=== PATIENT | female | born 1975 | race Caucasian/White ===

== ENCOUNTER 2022-01-13 13:02 | Emergency (ER) | payer BC, SELFPAY ==
[2022-01-13 14:37] VITALS: BP 164/92; PULSE 85; RESP 18; TEMP 37.1; O2SAT 99; BMI 39.5
--- NOTE | 2022-01-13 14:48 | HMH.EDUTC ---
[facility] [place] Clinical Impression: UTI (urinary tract infection) Qualifiers: Urinary tract infection type: site unspecified Hematuria presence: with hematuria Qualified Code(s): N39.0 - Urinary tract infection, site not specified; R31.9 - Hematuria, unspecified Disposition: Home, Self-Care Condition on Discharge: Good Instructions: Low Back Pain, DI for Low Back Pain Additional Instructions: *Etodolac every 8 hours with meal as needed for pain/inflammation *Remember you had a Toradol shot in the clinic today, which is similar to Etodolac *Not additional anti-inflammatory like Ibuprofen motrin, aleve, advil with the above amount of Etodolac. You can still take Tylenol every 4 hours as needed if you need something else for pain *Ice 20 minutes every 2 hours for the first 48 hours after the initial injury followed by moist heat every 20 minutes 3-4 times a day to affected area *Muscle relaxer every 8 hours as needed for muscle spasms but remember, it WILL cause drowsiness You cannot take it and drive, operate machinery or care for small children. *Keep this area active, no movement leads to more stiffness, However take it easy and avoid heavy lifting pushing or pulling *Follow up with you family doctor if no improvement for further treatment *Increase fluids. Water not Soda or Tea *Start antibiotic immediately and be sure to take as ordered for the FULL length of time although you should start to see improvement over the next 48 hours *Be SURE to follow up anytime for new or worsening symptoms with your family doctor. AND in 48 hours for urine culture results with your family doctor, if you do not have a doctor then you may call back to the [facility] for urine culture results and further treatment. We do recommend that you choose and establish care with a Primary Care Physician. AND follow up with them in 10-14 days to repeat UA to ensure infection is resolved and blood no longer present *Be sure to let your PCP know that we sent urine cultures from the [facility] so they can follow up to ensure that you area the on the correct antibiotic Call your doctor office and make appointment for 48 hours (2 days from today) to follow up and get the results of your urine culture and further treatment Prescriptions: Etodolac 200 mg PO Q8HP PRN #20 cap PRN Reason: Moderate Pain Transmission Status: Pending to [facility] Cyclobenzaprine HCl [Flexeril 10mg tablet] 10 mg PO Q8HP PRN #15 tab PRN Reason: Muscle Spasm Transmission Status: Pending to [facility] Nitrofurantoin Monohyd/M-Cryst [Macrobid 100 mg Capsule] 100 mg PO BID 7 Days #14 cap Transmission Status: Pending to [facility] Referrals: Leonard Caceres MD [Primary Care Provider] - As needed Time of Disposition: 15:41 Medical Decision Making - Conrad Inquiry Pt receiving controlled substance: No Conrad was queried for this patient: No Vital Signs: 01/13/22 14:37 Temperature 98.8 F Temperature Source Oral Pulse Rate [Left Radial] 85 Respiratory Rate 18 Blood Pressure [Right Arm] 164/92 H Blood Pressure Mean [Right Arm] 116 02 Sat by Pulse Oximetry 99 - Lab Data Lab results reviewed: Yes: I reviewed the patient's lab results. Lab Results 01/13/22 15:00: Urine Color Red, Urine Appearance Cloudy, Urine pH 5.0, Ur Specific [place]ham 1.025, Urine Protein 2+, Urine Glucose (UA) Negative, Urine Ketones Trace, Urine Blood 3+, Urine Nitrate Positive, Urine Bilirubin Negative, Urine Urobilinogen 1.0, Ur Leukocyte Esterase Trace Orders (Tests/Meds): ED MEDICATIONS Discontinued Medications Generic Name Dose Route Start Last Admin Trade Name Freq PRN Reason Stop Dose Admin Ketorolac Tromethamine 60 mg 01/13/22 14:55 01/13/22 15:22 Ketorolac 60mg/2ml Vial IM 01/13/22 14:56 60 mg ONCE ONE Administration Methylprednisolone Sodium Succinate 125 mg 01/13/22 14:55 01/13/22 15:22 Methylprednisolone Sod Succ 125mg Vial IM 01/13/22 14:56 125
[2022-01-13 15:20] LABS: Microscopic, Urine URINE MICROSCOPIC (MICROSCOPIC)
[2022-01-13 15:33] LABS: Appearance,Urine CLOUDY (Clear); Bilirubin,Urine Negative (Negative); Blood, Urine 3+ (Negative); Color,Urine RED (Yellow); Glucose,Urine (UA) Negative (Negative); Ketones,Urine TRACE (Negative); Leukocyte Esterase,Urine TRACE (Negative); Nitrate,Urine POSITIVE (Negative); Protein,Urine 2+ (Negative); Specific Gravity, Urine 1.025 (1.005-1.030)
[2022-01-13 15:48] LABS: Bacteria,Urine Trace /lpf; RBC,Urine TNTC #/hpf (0-3)
[2022-01-13 15:52] VITALS: BP 164/92; PULSE 85; RESP 18; TEMP 37.1
== END 2022-01-13 15:53 | disposition home or self-care (01) ==
PROVIDERS: Emergency Provider Nurse Practitioner; PCP Family Medicine
DX: N30.01 Acute cystitis with hematuria (principal)
CPT/HCPCS: 81001; 87086; 96372; 99212; G0463

== ENCOUNTER 2022-12-12 16:53 | Emergency (ER) | payer BC, SELFPAY ==
[2022-12-12 17:11] VITALS: BP 135/98; PULSE 89; RESP 18; TEMP 37.2; O2SAT 98; BMI 40.1
[2022-12-12 17:28] LABS: Apearance,Urine Clear (Clear); Bilirubin,Urine Negative (Negative); Blood, Urine 1+ (Negative); Color,Urine Dark Yellow (Yellow); Glucose,Urine (UA) Negative (Negative); Ketones,Urine Negative (Negative); PH,Urine 5.5 (5.0-8.5); Protein,Urine Negative (Negative); Specific Gravity, Urine 1.025 (1.005-1.030); UTC Leukocyte Esterase,Urine Negative (Negative); UTC Nitrate,Urine Negative (Negative); Urobilinogen,Urine 0.2 EU/dl (0.2)
--- NOTE | 2022-12-12 17:30 | XR_ITS ---
PROCEDURE INFORMATION: Exam: XR Lumbosacral Spine Exam date and time: 12/12/2022 5:42 PM Age: 47 years old Clinical indication: Low back pain TECHNIQUE: Imaging protocol: Radiologic exam of the lumbosacral spine. Views: 2 or 3 views. COMPARISON: No relevant prior studies available. FINDINGS: Bones/joints: Zvon-as-peozrzzz degenerative disc disease at L4-L5 with disc space narrowing and spurring and grade 1 spondylolisthesis. Moderate degenerative disc disease at L5-S1 with disc space narrowing and spurring. Mild degenerative spurring at the T12-L1 through the L2-L3 levels. Alignment is otherwise preserved. No fracture. Soft tissues: Unremarkable. IMPRESSION: Degenerative changes most pronounced at L4-L5 and L5-S1. No acute process.
--- NOTE | 2022-12-12 18:39 | EXP.UTC ---
Discharge Plan Disposition Patient Disposition: Home, Self-Care Condition: Good Prescriptions Prescriptions: New etodolac 200 mg capsule 200 mg PO Q8H PRN (Reason: pain) Qty: 20 0RF cyclobenzaprine 10 mg tablet 10 mg PO TID PRN (Reason: muscle spasm) Qty: 15 0RF No Action cyclobenzaprine 10 MG tablet 10 mg PO Q8HP PRN (Reason: Muscle Spasm) Qty: 15 0RF etodolac 200 MG capsule 200 mg PO Q8HP PRN (Reason: Moderate Pain) Qty: 20 0RF nitrofurantoin monohyd/m-cryst 100 MG capsule 100 mg PO BID 7 Days Qty: 14 0RF Referrals Follow up/Referrals: Jami Richard PA [Primary Care Provider] - See instructions Activity Restrictions/Add. Instructions Additional Instructions/Restrictions: *Etodolac yordan 8 hours with meal as needed for pain/inflammation *Not additional anti-inflammatory like motrin, aleve, advil with the above amount of ibuprofen. You can still take Tylenol every 4 hours as needed if you need something else for pain *Ice 20 minutes every 2 hours for the first 48 hours after the initial injury followed by moist heat every 20 minutes 3-4 times a day to affected area *Muscle relaxer every 8 hours as needed for muscle spasms but remember, it WILL cause drowsiness You cannot take it and drive, operate machinery or care for small children. *Keep this area active, no movement leads to more stiffness, However take it easy and avoid heavy lifting pushing or pulling *Follow up with you family doctor if no improvement for further treatment Clinical Impressions Clinical Impression: Low back pain Instructions Patient Instructions: DI for Low Back Pain, Low Back Pain, Cyclobenzaprine, Etodolac Discharge ED Provider: Jenni Power [facility] General Stated complaint: Back pain Mode of Arrival: Ambulatory Source of Information: Patient Limitations: No Limitations Time Seen by Provider: 12/12/22 17:15 Description of Symptoms (Recalled from Triage Doc. by RN): pt states she is having lower L back pain x2d. pt has struggled with sciatica over the past year but states this time it feels different. 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, squatting and pulling States that for the last couple of days she has been having pain in her left lower back area that at times feels like it shafer States that she has had sciatica pain in the past but this feels different States that she is not sure if she may have pulled something or not but does not recall hurting her back and denies urinary problems/pain/burning Related Data Previous Rx's Medication Instructions Recorded cyclobenzaprine 10 mg tablet 10 mg PO Q8HP PRN Muscle Spasm #15 01/13/22 tabs etodolac 200 mg capsule 200 mg PO Q8HP PRN Moderate Pain 01/13/22 #20 caps nitrofurantoin 100 mg PO BID 7 days #14 caps 01/13/22 monohydrate/macrocrystals 100 mg capsule cyclobenzaprine 10 mg tablet 10 mg PO TID PRN muscle spasm #15 12/12/22 tabs etodolac 200 mg capsule 200 mg PO Q8H PRN pain #20 caps 12/12/22 Allergies Allergy/AdvReac Type Severity Reaction Status Date / Time No Known Allergies Allergy Verified 01/13/22 14:40 Worker's Comp Is this a Worker's Comp case?: No PFSH [facility] Disclaimer: The information contained in this section may have been updated after the patient was seen, as this information can be updated by other users. Social History Smoking Status: Never smoker alcohol intake: never current occupational status: employed Travel in the last 8 weeks: None ROS Obtained: Yes All systems reviewed & no additional complaints except as documented and Yes Systems reviewed as appropriate & no additional complaints e
[2022-12-12 18:56] VITALS: BP 135/98; PULSE 89; RESP 18; TEMP 37.2
== END 2022-12-12 19:46 | disposition home or self-care (01) ==
PROVIDERS: Emergency Provider Nurse Practitioner; PCP Physician Assistant
DX: M54.50 Low back pain, unspecified (principal)
CPT/HCPCS: 72100; 81003; 99212; 99214; G0463

== ENCOUNTER 2023-10-05 15:43 | Emergency (ER) | payer BC, SELFPAY ==
[2023-10-05 15:50] VITALS: BP 165/97; PULSE 101; RESP 18; TEMP 36.5; O2SAT 98; BMI 39.5
--- NOTE | 2023-10-05 15:52 | EXP.UTC ---
Discharge Plan Disposition Patient Disposition: Home, Self-Care Condition: Good Prescriptions Prescriptions: New bisacodyl 10 mg suppository 10 mg PA DAILY PRN (Reason: constipation) Qty: 12 0RF ondansetron 4 mg Tablet,Disintegrating 4 mg PO Q8H PRN (Reason: Nausea) Qty: 12 0RF Referrals Follow up/Referrals: Leonard Caceres MD [Primary Care Provider] - See instructions Sabrina Coleman DPM [Staff Physician] - See instructions Activity Restrictions/Add. Instructions Additional Instructions/Restrictions: Drink plenty of fluids. Take tylenol or ibuprofen for pain or fever. Take the medications as directed. Follow up with your regular doctor. GO TO THE ER FOR ANY WORSENING SYMPTOMS Throw your tooth brush away and get a new one. Quarantine until you know the results of your covid-19 test. Notify your school or workplace of your results and follow their instructions regarding return to work/school. Clinical Impressions Clinical Impression: Constipation, Abdominal pain Instructions Patient Instructions: Constipation, DI for Constipation Discharge ED Provider: Ozzie Flores [facility] General Stated complaint: abdomen is hurting Time Seen by Provider: 10/05/23 15:51 History of Present Illness Provider Complaint: She states that for the past 1 day she has had abdominal bloating, nausea, and a fullness feeling. She also has had some left upper quadrant abdominal pain. She states that she is constipated and it has been at least 1 week since she has had a bowel movement. She has been taking miralax and milk of magnesia at home for her constipation. She denies any fever/chills/malaise. Related Data Previous Rx's Medication Instructions Recorded bisacodyl 10 mg rectal suppository 10 mg PA DAILY PRN constipation 10/05/23 #12 ea ondansetron 4 mg disintegrating 4 mg PO Q8H PRN Nausea #12 tabs 10/05/23 tablet Allergies Allergy/AdvReac Type Severity Reaction Status Date / Time No Known Allergies Allergy Verified 10/05/23 16:05 [facility] Disclaimer: The information contained in this section may have been updated after the patient was seen, as this information can be updated by other users. Social History (Updated 12/12/22 @ 18:50 by Jenni Power APRN) Smoking Status: Never smoker alcohol intake: never current occupational status: employed Travel in the last 8 weeks: None ROS Obtained: Yes All systems reviewed & no additional complaints except as documented Constitutional Constitutional: Denies chills, Denies fever(s) and Reports poor appetite ENT Ears, Nose, Mouth, and Throat: Denies dizziness and Denies sore throat Cardiovascular Cardiovascular: Denies dyspnea Respiratory Respiratory: Denies chest congestion, Denies cough and Denies dyspnea Gastrointestinal Gastrointestingal: Reports as per HPI, abdominal pain and nausea; Denies diarrhea or vomiting Genitourinary Female Genitourinary: Denies difficulty voiding, Denies dysuria, Denies hematuria, Denies urinary frequency, Denies urinary incontinence, Denies urinary hesitancy and Denies urinary urgency Musculoskeletal Musculoskeletal: Denies arthralgias Integumentary/Breasts Skin/Breast: Denies rash Neurologic Neurologic: Denies dizziness Physical Exam General General appearance: alert and in no apparent distress Head Head exam: atraumatic and normocephalic Eye Eye exam: Present normal appearance, PERRL and EOMI ENT ENT exam: Present normal exam, normal oropharynx, mucous membranes moist, TM's normal bilaterally and normal external ear exam Neck Neck exam: Present normal inspection, full ROM and trachea midline; Absent tenderness, meningismus or lymphadenopathy Chest Chest inspection: Present normal inspection and symmetric chest wall rise; Absent tenderness, rash or abscess Respiratory Respiratory exam: Present normal lung sounds bilaterally; Absent respiratory distress, wheezes or stridor Cardiovascular Cardiovascular exam: Present regular rate and normal rhythm; Absent irregular rhythm, systolic murmur, diastolic murmur or JVD Abdominal Exam Abdominal exam: Present soft and diminished bowel sounds; Absent distention, tenderness, guarding, rebound, rigidity, psoas sign, obturator sign, heel tap sign, Rbuio's sign, Rovsing's sign or tenderness at McBurney's Point Extremities Exam Extremities exam: Present normal inspection and full ROM; Absent tenderness Back Exam Back exam: Present normal inspection and full ROM; Absent tenderness, CVA tenderness (R) or CVA tenderness (L) Neurological Exam Neurological exam: Present alert, oriented X3 and CN II-XII intact Psychiatric Psychiatric exam: Present normal affect and normal mood Skin Skin exam: Present warm, dry, intact and normal color Lymphatic Lymphatic Findings: no adenopathy Medical Decision Making Medical Records Medical records reviewed: No I reviewed the patient's medical records. Conrad Inquiry Pt receiving controlled substance: No Lab Data Lab results reviewed: Yes I reviewed the patient's lab results. 10/05/23 16:15 10/05/23 16:15
[2023-10-05 15:53] VITALS: BMI 39.5
--- NOTE | 2023-10-05 16:01 | XR_ITS ---
PROCEDURE INFORMATION: Exam: XR Abdomen Exam date and time: 10/05/2023 4:01 PM Age: 48 years old Clinical indication: Abdominal tenderness and bloating and constipation and vomiting and other: Pain; Prior surgery; Surgery date: 6+ months; Surgery type: 3 c sections TECHNIQUE: Imaging protocol: Radiologic exam of the abdomen. Views: Frontal supine view of the abdomen. 1 View. COMPARISON: CR XR LUMBAR SPINE 2-3V 12/12/2022 5:42 PM FINDINGS: Peritoneal cavity: Evidence of tubal ligation. No suspicious calcifications detected. Lungs: Visualized lung bases are clear. Gastrointestinal tract: Normal. No bowel dilation. No significant stool burden. Bones/joints: Unremarkable. IMPRESSION: Unremarkable bowel gas pattern
[2023-10-05 16:10] LABS: Apearance,Urine Slightly Cloudy (Clear); Bilirubin,Urine Negative (Negative); Blood, Urine Trace (Negative); Color,Urine Dark Yellow (Yellow); Glucose,Urine (UA) Negative (Negative); Ketones,Urine Negative (Negative); Protein,Urine Trace (Negative); UTC Leukocyte Esterase,Urine Negative (Negative); UTC Nitrate,Urine Negative (Negative); Urobilinogen,Urine 0.2 EU/dl (0.2)
[2023-10-05 16:38] LABS: Basophils % 0.3 % (0.1-2.0); Eosinophils # 0.1 K/mm3 (0.0-0.4); Eosinophils % 1.1 % (0.1-12.0); Hematocrit 44.7 % (37.0-47.0); Hemoglobin 14.6 g/dL (12.2-16.2); Lymphocytes # 2.4 K/mm3 (0.7-4.5); Mean Corpuscular HGB Conc 32.7 g/dL (31.8-35.4); Mean Corpuscular Hemoglobin 30.3 pg (27.0-31.2); Mean Corpuscular Volume 92.9 fl (81-99); Mean Platelet Volume 8.9 fl (7.4-10.4); Monocytes # 0.2 K/mm3 (0.1-1.0); Neutrophils # 5.3 K/mm3 (1.8-7.8); Neutrophils % 65.6 % (37.0-80.0); Platelet Count 336 K/mm3 (142-424); Red Blood Count 4.81 M/mm3 (4.20-5.40); Red Cell Distribution Width 13.1 % (11.5-17.5)
[2023-10-05 16:46] LABS: Chloride 104 mmol/L (98-107); Sodium 137 mmol/L (136-145)
[2023-10-05 16:49] LABS: Alanine Aminotransferase 29 U/L (12-78); Alkaline Phosphatase 85 U/L (38-126); Amylase 68 U/L (30-110); Aspartate Amino Transferase 33 U/L (14-36); Bilirubin,Total 0.5 mg/dl (0.2-1.3); Blood Urea Nitrogen 13 mg/dl (7-17); Calcium 9.4 mg/dl (8.4-10.2); Carbon Dioxide 33 mmol/L (22.0-30.0); Creatinine Clearance Estimated 135 mL/min (50-200); Estimated Glomerular Filt Rate 60 ml/min (>60); GFR (African American) 72 ML/MIN (>60); Glucose 97 mg/dl (74-100)
[2023-10-05 16:50] LABS: Albumin Level 4.4 g/dl (3.5-5.0); Albumin/Globulin Ratio 1.2 (1.1-1.8); Globulin 3.6 g/dL (1.3-3.2); Lipase 90 U/L (23-300)
[2023-10-05 17:10] VITALS: BP 165/97; PULSE 101; RESP 18; TEMP 36.5; O2SAT 98
== END 2023-10-05 17:10 | disposition home or self-care (01) ==
PROVIDERS: Emergency Provider Nurse Practitioner Family; PCP Family Medicine
DX: R10.12 Left upper quadrant pain (principal); K59.00 Constipation, unspecified; B95.1 Streptococcus, group B, as the cause of diseases classified elsewhere; B96.89 Other specified bacterial agents as the cause of diseases classified elsewhere; R11.0 Nausea; R14.0 Abdominal distension (gaseous)
CPT/HCPCS: 74018; 80053; 81003; 82150; 83690; 85025; 87086; 99212; 99214; G0463

== ENCOUNTER 2025-04-07 08:12 | Outpatient (CLI) | payer BC, SELFPAY ==
--- NOTE | 2025-04-07 08:30 | US_ITS ---
PROCEDURE: US TRANSVAGINAL CLINICAL INDICATION: abdominal/pelvic pain COMPARISON: No exams were available for comparison FINDINGS: Transvaginal and transabdominal sonographic images of the pelvis were obtained. UTERUS: 9.2cm x 5.3cmx 5.1cm slightly retroflexed with a combined endometrial thickness of 10.2mm. A scar is seen. LEFT OVARY: 1.9 cmx1.7 cmx2.5cm with a volume of 4.3ml. RIGHT OVARY: Not visualized The left ovary is seen transabdominally and appears normal. Doppler flow to the left ovary is seen. There is no fluid in the cul-de-sac. There is however fluid around the uterus posteriorly. IMPRESSION: 1. Retroflexed uterus slightly enlarged in size and normal in shape. The endometrium is normal measuring 10.2 mm. 2. The right ovary was not seen transvaginally or transabdominally. The left ovary is seen only transabdominally and appears normal. 3. There is no fluid in the cul-de-sac but a trace amount of fluid that surrounds the posterior uterus. Dictated by: Mike Thakkar MD 04/07/2025 17:30 Mike Thakkar MD in OV 04/07/2025 17:30
== END 2025-04-07 23:59 | disposition home or self-care (01) ==
PROVIDERS: PCP Family Medicine; Visit Provider Obstetrics & Gynecology
DX: N85.4 Malposition of uterus (principal); N85.2 Hypertrophy of uterus; R93.89 Abnormal findings on diagnostic imaging of other specified body structures; R10.2 Pelvic and perineal pain
CPT/HCPCS: 76830

== ENCOUNTER 2025-05-24 15:57 | Outpatient (CLI) | payer BC, SELFPAY ==
--- OUTSIDE RECORDS SUMMARY | 2025-05-24 16:00 | XMS_ITS | Clinical Summary ---
Author Organization Healthcare Address [address] [place] [address] Care Team Providers Care Racing Manager Name Role Phone Unavailable Primary Care Provider Unavailabl e Social History Tobacco Use Types Packs/Day Years Used Date Smoking Tobacco: Never Assessed Comments Unknown Sex and Gender Information Value Date Recorded Sex Assigned at Not on file Legal Sex Female 11:06 AM EDT Gender Identity Not on file Sexual Orientation Not on file Plan of Treatment Health Maintenance Due Date Last Done Comments [facility]-Depression Screening 1977 [facility]-/Child/Adol SDOH Screenings 1977 [facility]- SDOH Screenings 1995 [facility]-Adult SDOH Screenings 1995 [facility]-DTaP,Tdap,and Td Vaccine s (1 - Tdap) 1996 [facility]-Hepatitis B Vaccines (1 of 3 - 19+ 3-dose series) 1996 [facility]-Pap Smear 1998 [facility]-Cervical Cancer Screening 2007 [facility]-HPV/Cotest 2007 CT Colonography 2022 Colonoscopy 2022 FIT-DNA 2022 FIT 2022 FOBT 2022 Sigmoidoscopy 2022 [facility]-Colorectal Cancer Screening 2022 [id number] Vaccine (1 - 20 24-25 season) 2025 [facility]-Influenza Vaccine (#1) 2025 [facility]-Zoster Vaccines (1 of 2) 2027 HPV Vaccines Aged Out No longer eligi ble based on patient's age to complete this topic [facility]-HIB Vaccines Aged Out No longer e ligible based on patient's age to complete this topic [facility]-Hepatitis A Vaccines Aged Out No longer eligible based on patient's age to complete this topic [facility]-IPV Vaccines Aged Out No longer e ligible based on patient's age to complete this topic [facility]-Pneumococcal Vaccine: Pediatrics (0 to 5 Years) and At-Risk Patients (6 to 49 Years) Aged Out No long er eligible based on patient's age to complete this topic [facility]-Rotavirus Vaccines Aged Out No lo nger eligible based on patient's age to complete this topic
[2025-05-25 12:15] LABS: FSH 4.3 mIU/mL (.); LH 5.6 mIU/mL (.); Testosterone,Total 47 ng/dL (4-50)
== END 2025-05-24 23:59 | disposition home or self-care (01) ==
LOC: LAB 15:58
PROVIDERS: PCP Physician Assistant; Visit Provider Obstetrics & Gynecology
DX: N95.1 Menopausal and female climacteric states (principal)
CPT/HCPCS: 36415; 82670; 83001; 83002; 84144; 84403

== ENCOUNTER 2025-06-06 15:18 | Outpatient (CLI) | payer BC, SELFPAY ==
--- NOTE | 2025-06-06 15:30 | MM_ITS ---
PROCEDURE INFORMATION: Exam: MG Bilateral Screening 3D Mammography Exam date and time: 06/06/2025 3:27 PM Age: 50 years old Clinical indication: Screening exam TECHNIQUE: Imaging protocol: Bilateral Screening tomosynthesis and 2D mammography including computer-aided detection (CAD) when performed. COMPARISON: No relevant prior studies available. FINDINGS: MAMMOGRAPHY: Breast composition: There are scattered areas of fibroglandular density. Mass: No suspicious masses. Architectural distortion: None. Calcifications: No suspicious calcifications. Asymmetric density: None. Skin thickening: None. Axillary adenopathy: None. IMPRESSION: No mammographic evidence of malignancy. Annual screening is recommended unless otherwise clinically indicated. ASSESSMENT: BI-RADS Category 1: Negative.
--- OUTSIDE RECORDS SUMMARY | 2025-06-06 16:01 | XMS_ITS | Patient Health Record ---
[facility] [address] [place] [id number] Care Team Providers Care Inspector Publications Name Role Phone Leonard Caceres Primary Care Provider [phone] Allergies No Known Allergies Reason For Referral No Information Medications Medication SIG (Take, Route, Frequency, Duration) Notes Start Date End Date Status Nitrofurantoin Macrocrystal 100 MG 1 cap(s) orally 2 times a day; Duration: 7 day(s) 06/17/2022 Not-Taking Hyoscyamine Sulfate SL 0.125 MG 1 tablet under the tongue and allow to dissolve as needed Sublingual Three times a day, prn 11/14/2023 Active Immunizations Vaccine Route Administration Date Status Comme nts Tetanus Tdap-Adacel (over 7yrs) IM Intramuscular 09/03/2010 Administered Problems Problem Type SNOMED Code ICD Code Onset Dates Problem Status W/U Status Risk Notes Problem Essential hypertension (57381371) HTN [Hypertension] (401.9) Active confirmed Problem Hypertension (87160870) HTN (hypertension) (I10) Active confirmed Problem Sciatica (52050012) Acute bilateral low back pain with right-sided sciatica (M54.41) Active confirmed Plan Of Treatment No Information Insurance Providers Payer Name Payer Address Payer Phone Subscriber Number Group Number Insured Name Patient Relationship to Insured Coverage Start Date Coverage End Date [employer] [address] [place] [address] [id number] Mine Olivarez Self - patient is the insured Medical (General) History Surgical History Surgery Date(Month/Year) C section 1999/2003 C section 2011
--- OUTSIDE RECORDS SUMMARY | 2025-06-06 16:01 | XMS_ITS | Clinical Summary ---
Author Organization Healthcare Address [address] [place] [address] Care Team Providers Care Full Stack Net Developer Name Role Phone Unavailable Primary Care Provider [...] 2022 Sigmoidoscopy 2022 [facility]-Colorectal Cancer Screening 2022 [id number] Vaccine (1 - 20 24-25 season) 2025 [...]
--- OUTSIDE RECORDS SUMMARY | 2025-06-06 16:02 | XMS_ITS | Data Portability ---
Author Organization [facility] [place] [facility] [place] [facility] [place] Address [address] [place] [id number] Care Team Providers Care Fairground Operator Name Role Phone SHAE JACOBS Primary Care Provider [phone] Assessment Encounter Date Assessment Date Assessment LastModified by Organization Details LastModified Time 12/16/2023 12/16/2023 48-year-old female with abdominal bloating despite treatment of constipation with intermittent left lower quadrant pain, decrease in appetite and early satiety: - Will schedule EGD for further evaluation of abdominal pain and bloating - Will schedule screening colonoscopy, patient is screening age and has never undergone screening colonoscopy. - Will order CT abdomen pelvis for further evaluation of abdominal bloating - Will send referral to Gynecology for abdominal bloating. Instructed patient to follow up with them annually F/u 2-4 weeks after EGD/Colon Not available 12/16/2023 10:01:55 Plan of Treatment Reminders Order Date Submit Date Provider Last Modified By Organization Details Last Modified Time Details Appointments None recorded. Lab None recorded. Referral None recorded. Procedures None recorded. Surgeries None recorded. Imaging CT, abdomen + pelvis, w/ contrast 2023 [address] [email or web address] [address] [place] [address] (Centralized Scheduling), [address], [place], [address], 14:23:46 Medication Orders None recorded. Patient TargetsNo targets recorded. Patient InstructionsNo instructions recorded. Reason for Referral None Reported. Medical Equipment None Reported. Allergies No known drug allergies Medications Name Sig Start Date Stop Date Status Note LastModified by Organization Details LastModified Time cyclobenzaprin e 10 mg tablet TAKE 1 TABLET BY MOUTH THREE TIMES DAILY NEEDED FOR MUSCLE SPASM active Not Available Not Available No t Available etodolac 200 mg capsule TAKE 1 CAPSULE BY MOUTH EVERY 8 HOURS NEEDED FOR PAIN active Not Available Not Available No t Available hyoscyamine 0.125 mg sublingual tablet DISSOLVE 1 TABLET IN MOUTH THREE TIMES DAILY NEEDED active Not Available Not Available No t Available ondansetron 4 mg disintegrating tablet DISSOLVE 1 TABLET IN MOUTH EVERY 8 HOURS NEEDED FOR NAUSEA active Not Available Not Available No t Available Gavilyte-C 240 gram-22.72 gram-6.72 gram-5.84 gram oral solution DRINK 2000 ML BY MOUTH TWICE A DAY active Not Available Not Available No t Available Suprep Bowel Prep Kit 17.5 gram-3.13 gram-1.6 gram oral solution Take 2 packages by oral route for 1 day. 2023 active Not Available Not Available Not Avai lable Vitals Date Recorded Body weight Body mass index (BMI) Body height Body temperature Oxygen saturation Oxygen saturation in Arterial blood by Pulse oximetry Heart rate Heart rate Systolic And Diastolic Provider Name and Address Organization Details Last Updated DateTime 4 287486. 26 g 40.3 kg/m2 172.72 cm 97.9 [degF] 97 % 97 % 82 /min 83 /min 155/89 mm[Hg] [facility] [place] [facility] 09:08:59 Social History None recorded. 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 Family History Nothing Reported. Medical History No medical history recorded. Gynecological HistoryNo gynecological history recorded. Obstetrics History GPAL:G 0 P 0 0 0 0 Past Encounters Encounter ID Performer Location Encounter Start Date Encounter Closed Date Diagnosis/Indication Diagnosis SNOMED-CT Code Diagnosis ICD10 Code Diagnosis IMO Codes Diagnosis Note [id number] Genaro Oconnor MD [facility] [address] [address] 12/16/2023 08:53:44 12/16/2023 09:39:44 Abdominal bloating 346018974 R14.0 Early satiety 290941178 R68.81 Decrease in appetite 643 49642 R63.0 Screening for malignant neoplasm of colon 775130282 Z12.11 Left lower quadrant pain 069415890 R10.32 Health Concerns Section Related Observation LastModified by Organization Detai ls LastModified Time None Recorded Concern Status LastModified by Organization Details LastModified Time None Recorded Advance Directives Directive None Recorded Payers Insurance Date Sequence Insurance Name Policy Number Policy Blair Covered Member ID Blair Member ID Guarantor Name 01/09/2024 1 [employer] [id number] Mine Olivarez [id number] Mine Olivarez Notes Date Note Type Note Provider Name and Address Organization Details Recorded Time 12/16/2023 text/html (CURRENT 12/16/23 Vamsi Santoyo): Ms. Olivarez Is a 48-year-old female who was self-referred. She presents to the clinic today complaining of abdominal bloating since September. She previously went to urgent care where abdominal x-ray showed constipation. Since that time she has been using MiraLax and magnesium to regulate her bowel movements. She reports soft bowel movements once daily. She continues to experience constant bloating with intermittent left lower quadrant pain, not affected by food. She does not currently follow with Gynecology. She does report some decreased appetite and early satiety. She denies any unintentional weight loss, nausea, vomiting, hematemesis, hematochezia or melena. She has never undergone EGD or screening colonoscopy. TONY SANTOYO MSN, POULTRY HUSBANDMAN, MANAGER PAYER-C [address] [facility], [place], [address], [place] [facility] [place] [facility] [place] 12/16/2023 10:03:19 OBGyn Episode No OBEpisode recorded.
== END 2025-06-06 23:59 | disposition home or self-care (01) ==
LOC: RAD 15:18
PROVIDERS: PCP Physician Assistant; Visit Provider Obstetrics & Gynecology
DX: Z12.31 Encounter for screening mammogram for malignant neoplasm of breast (principal); Z00.00 Encounter for general adult medical examination without abnormal findings; R92.323 Mammographic fibroglandular density, bilateral breasts; N95.1 Menopausal and female climacteric states
CPT/HCPCS: 77063; 77067